=== PATIENT | male | born 1955 | race Caucasian/White ===

== ENCOUNTER 2016-12-09 12:58 | Observation (INO) | payer SELFPAY ==
[~2016-12-09] VITALS: Ht 170.2 cm; Wt 85.0 kg
[2016-12-09] VITALS (7 sets, daily range): BP systolic 127–171; BP diastolic 71–88; PULSE 41–57; RESP 14–18; TEMP 98.1–98.7; O2SAT 96–100
[~2016-12-09 12:58] MED LIST: CIPR-9 PO; CIPR0.3S LEFT EAR; CORT1SOL LEFT EAR; IBUP800T23 PO; LIPI10TA PO; LISI-519 PO; PROZ20CA11 PO
--- NOTE | 2016-12-09 13:13 | PD ---
Physical Exam Date Seen by Provider: Dec 09, 2016 Time Seen by Provider: 13:11 Narrative 61 YOWM C/O INTERMITTENT CHEST TIGHTNESS SINCE YEST. NO N/V/OR DIAPHORESIS VS REVIEWED AWAITING BED PLACEMENT Data Data Last Documented VS Vital Signs Date Time Temp Pulse Resp B/P Pulse Ox O2 Delivery O2 Flow Rate FiO2 12/09/16 12:59 98.7 57 14 135/73 96 Room Air MDM Supervised Visit with STEVO: Hussein Littlejohn Dec 09, 2016 13:13
[2016-12-09] MEDS ORDERED: SODIUM CHLORIDE 0.9% FLUSH 10 ML FLUSH IVF PRN (13:30)
[2016-12-09 13:58] LABS: AUTOMATED NEUTROPHIL # 6.8 TH/MM3 (1.8-7.7); BASOPHIL # 0.1 TH/MM3 (0-0.2); BASOPHIL % 0.6 % (0.0-2.0); EOSINOPHIL # 0.3 TH/MM3 (0-0.4); EOSINOPHIL % 2.6 % (0.0-4.0); HEMATOCRIT 44.6 % (39.0-51.0); HEMO FLAGS DIFF FINAL; LYMPH % 24.5 % (9.0-44.0); LYMPHOCYTE # 2.5 TH/MM3 (1.0-4.8); MEAN CELL VOLUME 91.5 FL (80.0-100.0); MEAN CORPUSCULAR HGB CONC 33.9 % (32.0-36.0); MONO % 4.4 % (0.0-8.0); NEUT % 67.9 % (16.0-70.0); PLATELET COUNT 204 TH/MM3 (150-450); RED BLOOD COUNT 4.88 MIL/MM3 (4.50-5.90); RED CELL DISTRIBUTION WIDTH 13.6 % (11.6-17.2); WHITE BLOOD COUNT 10.1 TH/MM3 (4.0-11.0)
[2016-12-09 14:11] LABS: APTT (PATIENT) 34.5 SEC (24.3-30.1); PROTHROMBIN TIME - PATIENT 35.4 SEC (9.8-11.6)
[2016-12-09 14:15] LABS: ANION GAP 5 MEQ/L (5-15); BICARBONATE 30.1 MEQ/L (21.0-32.0); BLOOD UREA NITROGEN 19 MG/DL (7-18); CHLORIDE 101 MEQ/L (98-107); GLOMERULAR FILTRATION RATE 76 ML/MIN (>89); MAGNESIUM 2.1 MG/DL (1.5-2.5); POTASSIUM 3.7 MEQ/L (3.5-5.1); SODIUM (NA) 136 MEQ/L (136-145)
[2016-12-09 14:20] LABS: CREATINE KINASE 217 U/L (39-308)
[2016-12-09 14:33] LABS: CKMB 3.1 NG/ML (0.5-3.6)
--- NOTE | 2016-12-09 15:31 | RADRPT ---
EXAM DATE/TIME: 12/09/2016 14:29 [facility] COMPARISON: No previous studies available for comparison. INDICATIONS : Chest pain since yesterday. MEDICAL HISTORY : None. SURGICAL HISTORY : None. ENCOUNTER: Initial ACUITY: 2 days PAIN SCORE: 7/10 LOCATION: Bilateral chest FINDINGS: PA and lateral views of the chest demonstrate the lungs to be symmetrically aerated without evidence of mass, infiltrate or effusion. The cardiomediastinal contours are unremarkable. Osseous structure s are intact. CONCLUSION: No acute disease. Joseph Pond MD on December 09, 2016 at 15:29 Board Certified Radiologist. This report was verified electronically.
--- NOTE | 2016-12-09 18:20 | PD ---
HPI Chief Complaint: Pain: Acute or Chronic Time Seen by Provider: 16:51 Travel History International Travel<30 days: No Contact w/Intl Traveler<30days: No Traveled to known affect area: No History of Present Illness HPI 61 year-old woman presents emergent arm with intermittent stabbing bandlike chest pain across his chest starting about 2 days ago. Been intermittent since then. Not clearly exertional. No clear alleviating factors. He's had one episode of chest pain in the past in 2003 were he had a stress test and ultimately a heart catheterization that was reportedly normal. No cardiac workup since then. He drinks alcohol only rarely. Doesn't really take NSAIDs. He's not had any shortness of breath or nausea vomiting with this. He has had a little bit diaphoresis. He has had some recent car trips but has not had any leg swelling or pain or cramps in his legs. Again no shortness of breath. History Past Medical History Narrative Medical Hypertension Hyperlipidemia Tetanus Vaccination: Unknown Influenza Vaccination: No Social History Alcohol Use: Yes (OCCASIONALLY) Tobacco Use: Yes (1 PPD ) Allergies-Medications (Allergen,Severity, Reaction): Coded Allergies: sulfamethoxazole (Unverified Allergy, Intermediate, Rash, 12/09/16) trimethoprim (Unverified Allergy, Intermediate, Rash, 12/09/16) Reported Meds & Prescriptions Reported Meds & Active Scripts Active Reported Lipitor (Atorvastatin Calcium) 10 Mg Tab 10 Mg PO HS Lisinopril 5 Mg Tab 5 Mg PO DAILY Prozac (Fluoxetine HCl) 20 Mg Cap 20 Mg PO DAILY Review of Systems Except as stated in HPI: all other systems reviewed are Neg Physical Exam Narrative GENERAL: Well-appearing 61-year-old man, no acute distress. SKIN: Focused skin assessment warm/dry. HEAD: Atraumatic. Normocephalic. CARDIOVASCULAR: Regular rate and rhythm. No murmur appreciated. RESPIRATORY: No accessory muscle use. Clear to auscultation. Breath sounds equal bilaterally. GASTROINTESTINAL: Abdomen soft, non-tender, nondistended. Hepatic and splenic margins not palpable. MUSCULOSKELETAL: No obvious deformities. No clubbing. No cyanosis. No edema. NEUROLOGICAL: Awake and alert. No obvious cranial nerve deficits. Motor grossly within normal limits. Normal speech. PSYCHIATRIC: Appropriate mood and affect; insight and judgment normal. Data Data Last Documented VS Vital Signs Date Time Temp Pulse Resp B/P Pulse Ox O2 Delivery O2 Flow Rate FiO2 12/09/16 17:57 171/88 12/09/16 17:54 41 12/09/16 17:50 100 Nasal Cannula 2 12/09/16 17:49 16 12/09/16 12:59 98.7 Orders Electrocardiogram (12/09/16 13:20) Basic Metabolic Panel (Bmp) (12/09/16 13:20) Ckmb (Isoenzyme) Profile (12/09/16 13:20) Complete Blood Count With Diff (12/09/16 13:20) Magnesium (Mg) (12/09/16 13:20) Prothrombin Time / Inr (Pt) (12/09/16 13:20) Act Partial Throm Time (Ptt) (12/09/16 13:20) Troponin I (12/09/16 13:20) Ecg Monitoring (12/09/16 13:20) Bilateral Bp Monitoring (12/09/16 13:20) Iv Access Insert/Monitor (12/09/16 13:20) Oximetry (12/09/16 13:20) Oxygen Administration (12/09/16 13:20) Sodium Chloride 0.9% Flush (Ns Flush) (12/09/16 13:30) Chest, Pa & Lat (12/09/16 13:20) CKMB (12/09/16 13:30) CKMB% (12/09/16 13:30) Hepatic Functional Panel (12/09/16 17:38) Prothrombin Time / Inr (Pt) (12/09/16 17:38) Troponin I (12/09/16 18:03) Electrocardiogram (12/09/16 ) Admit Order (Ed Use Only) (12/09/16 ) Activity Bed Rest With Brp (12/09/16 18:55) Vital Signs (Adult) Q4H (12/09/16 18:55) Cardiac Rhythm .As Directed (12/09/16 18:55) Notify Dr: Other .PRN (12/09/16 18:55) Notify Parameters (12/09/16 18:55) Resp Oxygen Nasal Cannula (12/09/16 ) Ckmb (Isoenzyme) Profile (12/09/16 18:55) Ckmb (Isoenzyme) Profile (12/09/16 21:55) Troponin I (12/09/16 18:55) Troponin I (12/09/16 21:55) Electrocardiogram (12/09/16 18:55) Electrocardiogram (12/09/16 21:55) ^ Obtain (12/09/16 18:55) Sodium Chloride 0.9% Flush (Ns Flush) (12/09/16 19:00) Sodium Chloride 0.9% Flush (Ns Flush) (12/09/16 21:00) [employer] / Telemetry GABO.Q8H (12/09/16 18:55) Labs Laboratory Tests Test 12/09/16 12/09/16 12/09/16 12/09/16 13:30 13:33 13:36 18:00 Sodium Level 136 MEQ/L Potassium Level 3.7 MEQ/L Chloride Level 101 MEQ/L Carbon Dioxide Level 30.1 MEQ/L Anion Gap 5 MEQ/L Blood Urea Nitrogen 19 MG/DL Creatinine 1.00 MG/DL Estimat Glomerular Filtration 76 ML/MIN Rate Random Glucose 126 MG/DL Calcium Level 8.8 MG/DL Magnesium Level 2.1 MG/DL Total Creatine Kinase 217 U/L Creatine Kinase MB 3.1 NG/ML Troponin I LESS THAN 0.02 NG/ML White Blood Count 10.1 TH/MM3 Red Blood Count 4.88 MIL/MM3 Hemoglobin 15.1 GM/DL Hematocrit 44.6 % Mean Corpuscular Volume 91.5 FL Mean Corpuscular Hemoglobin 31.0 PG Mean Corpuscular Hemoglobin 33.9 % Concent Red Cell Distribution Width 13.6 % Platelet Count 204 TH/MM3 Mean Platelet Volume 8.6 FL Neutrophils (%) (Auto) 67.9 % Lymphocytes (%) (Auto) 24.5 % Monocytes (%) (Auto) 4.4 % Eosinophils (%) (Auto) 2.6 % Basophils (%) (Auto) 0.6 % Neutrophils # (Auto) 6.8 TH/MM3 Lymphocytes # (Auto) 2.5 TH/MM3 Monocytes # (Auto) 0.4 TH/MM3 Eosinophils # (Auto) 0.3 TH/MM3 Basophils # (Auto) 0.1 TH/MM3 CBC Comment DIFF FINAL Differential Comment Prothrombin Time 35.4 SEC 11.4 SEC Prothromb Time International 3.0 RATIO 1.0 RATIO Ratio Activated Partial 34.5 SEC Thromboplast Time Total Bilirubin 0.7 MG/DL Direct Bilirubin 0.1 MG/DL Indirect Bilirubin 0.6 MG/DL Aspartate Amino Transf 18 U/L (AST/SGOT) Alanine Aminotransferase 23 U/L (ALT/SGPT) Alkaline Phosphatase 70 U/L Total Protein 7.1 GM/DL Albumin 3.7 GM/DL [facility] Medical Decision Making Medical Screen Exam Complete: Yes Emergency Medical Condition: Yes Interpretation(s) My review of EKG: Sinus bradycardia rate of 51, normal axis, septal Q waves, normal intervals, no acute ischemia. Repeat EKG shows sinus bradycardia at a rate of 41, still question of some septal Q waves, no definite evidence of acute ischemia. LABS: CBC is unremarkable. CMP shows mildly elevated BUN. Troponin negative. INR 3.0, repeat normal. Suspect this initial value is spurious. Differential Diagnosis ACS, gastritis, reflux, PE, other Narrative Course Medical decision making Is a 61 year-old woman who presents emergent from epigastric chest pain intermittent since the past 2 days. He does little bit of dietary indiscretion my suspicion is is likely GI in origin. Difficult to exclude ACS. Multiple risk factors. We'll plan on admission to chest pain Center for observation. He reports some alcohol use but not frequent. His INR is elevated. We'll recheck the INR and abnormal liver enzymes. I don't think he has a PE. Diagnosis Primary Impression: Chest pain Jose Juan Fisher MD Dec 09, 2016 18:20
[2016-12-09 18:40] LABS: INDIRECT BILIRUBIN 0.6 MG/DL (0.0-0.8); PROTHROMBIN TIME - PATIENT 11.4 SEC (9.8-11.6); TOTAL BILIRUBIN ADULT 0.7 MG/DL (0.2-1.0)
[2016-12-09] MEDS ORDERED: SODIUM CHLORIDE 0.9% FLUSH 10 ML FLUSH IV FLUSH PRN (19:00)
[2016-12-09 22:02] LABS: CREATINE KINASE 207 U/L (39-308)
[2016-12-09 22:15] LABS: CKMB 3.2 NG/ML (0.5-3.6)
[2016-12-09] MEDS: SODIUM CHLORIDE 0.9% FLUSH 10 ML FLUSH IV FLUSH SCH (22:20)
[2016-12-10] VITALS (7 sets, daily range): BP systolic 90–135; BP diastolic 52–71; PULSE 44–56; RESP 18; TEMP 97.7–98.5; O2SAT 96–99
--- NOTE | 2016-12-10 00:30 | EKG ---
Date Performed: 12/09/2016 Time Performed: 18:14:42 PTAGE: 61 years EKG: SINUS BRADYCARDIA SEPTAL MYOCARDIAL INFARCTION ABNORMAL ECG PREVIOUS TRACING : 12/09/2016 13.26 Compared to prior tracing no significant change DOCTOR: Wesley Khan Interpretating Date/Time 12/10/2016 00:28:27
[2016-12-10] MEDS: SODIUM CHLORIDE 0.9% FLUSH 10 ML FLUSH IV FLUSH SCH (08:31)
[2016-12-10] MEDS ORDERED: LISINOPRIL 5 MG TAB PO SCH (11:00)
--- NOTE | 2016-12-10 11:00 | HHI.HP ---
HPI Primary Care Physician No Primary Care Physician Chief Complaint Chest pain History of Present Illness This is a 61-year-old male that presents to ED via private vehicle complaining of a discomfort and to waking 2 days ago. He describes as a bandlike sensation/ tightness. The last 3-4 hours but since it has recurred lasting a few seconds at a time. Denies shortness of breath, nausea, or diaphoresis. Found nothing to worsen or improve it. Found nothing to bring on the discomfort. Denies history of CAD. Denies recent illnesses. Review of Systems General: Patient denies fevers, chills recent, and recent travel HEENT: Patient denies headache, sore throat, difficulty swallowing. Cardiovascular: Has the chest discomfort as mentioned above. Denies sensation of heart beating rapidly or irregularly. No syncope. Denies diaphoresis. Respiratory: Denies shortness of breath or inspirational chest discomfort. Denies coughing wheezing or hemoptysis. GI: Patient denies nausea, vomiting, diarrhea, abdominal pain, bloody stools. Musculoskeletal: Patient denies joint pain or edema. Denies calf pain or edema. Neurovascular: Patient denies numbness, tingling, weakness in extremities. Denies headache. Endocrine: Denies polyuria and polydipsia. Hematologic: Denies easy bruising. Skin: Denies rash or itching. Past Family Social History Allergies: Coded Allergies: sulfamethoxazole (Unverified Allergy, Intermediate, Rash, 12/09/16) trimethoprim (Unverified Allergy, Intermediate, Rash, 12/09/16) Past Medical History Hypertension, hyperlipidemia, diverticulitis, past history tobacco abuse but quit smoking 2 years ago. Denies diabetes and CAD. Past Surgical History Noncontributory. Reported Medications Reported Meds & Active Scripts Active Reported Lipitor (Atorvastatin Calcium) 10 Mg Tab 10 Mg PO HS Lisinopril 5 Mg Tab 5 Mg PO DAILY Prozac (Fluoxetine HCl) 20 Mg Cap 20 Mg PO DAILY Active Ordered Medications Current Medications Medications (Trade) Dose Ordered Sig/Rodriguez Route Start Time Stop Time Status Last Admin (NS Flush) 2 ml UNSCH PRN IVF 12/09/16 13:30 (NS Flush) 2 ml UNSCH PRN IV FLUSH 12/09/16 19:00 (NS Flush) 2 ml BID IV FLUSH 12/09/16 21:00 12/09/16 22:20 Family History Denies family history of CAD. Social History Patient quit smoking cigarettes 2 years ago. Prior that he smoked 1-1-1/2 packs of cigarettes daily for greater than 30 years. Has occasional alcohol. Denies illicit drugs. Physical Exam Vital Signs Vital Signs Date Time Temp Pulse Resp B/P Pulse Ox O2 Delivery O2 Flow Rate FiO2 12/10/16 04:09 52 12/10/16 03:25 45 18 135/70 99 12/10/16 00:46 44 12/10/16 00:23 98.2 46 18 128/71 96 12/09/16 21:23 98.1 42 18 156/74 96 12/09/16 19:53 98 Nasal Cannula 2.50 12/09/16 19:25 47 18 135/79 98 Room Air 12/09/16 17:57 171/88 12/09/16 17:54 41 127/71 12/09/16 17:54 41 127/71 12/09/16 17:50 100 Nasal Cannula 2 12/09/16 17:49 41 16 171/82 100 Nasal Cannula 2 12/09/16 17:49 41 18 171/82 100 Nasal Cannula 2 12/09/16 12:59 98.7 57 14 135/73 96 Room Air Physical Exam GENERAL: This is a well-nourished, well-developed patient, in no apparent distress. Patient speaks in clear complete sentences. Patient is pleasant. HEENT: Head is atraumatic and normocephalic. Neck is supple without lymphadenopathy and trachea is midline. No JVD or carotid bruits. CARDIOVASCULAR: Regular rate and rhythm without murmurs, gallops, or rubs. RESPIRATORY: Clear to auscultation. Breath sounds equal bilaterally. No wheezes , rales, or rhonchi. Chest wall is nontender. No use of accessory muscles. GASTROINTESTINAL: Abdomen is nontender, nondistended. Abdomen soft. No obvious pulsatile mass or bruit. No CVA tenderness. Strong femoral pulses bilaterally. Normal bowel sounds in all quadrants. MUSCULOSKELETAL: Patient is moving upper and lower extremities freely. No calf tenderness or edema, no Homans sign. Strong pulses in upper and lower extremities. NEUROLOGICAL: Patient is alert and oriented. Cranial nerves 2-12 are grossly intact. No focal deficits and speech is clear. SKIN: No rash and turgor is normal. Laboratory Laboratory Tests Test 12/09/16 12/09/16 12/09/16 12/09/16 13:30 13:33 13:36 18:00 Sodium Level 136 Potassium Level 3.7 Chloride Level 101 Carbon Dioxide Level 30.1 Anion Gap 5 Blood Urea Nitrogen 19 Creatinine 1.00 Estimat Glomerular Filtration 76 Rate Random Glucose 126 Calcium Level 8.8 Magnesium Level 2.1 Total Creatine Kinase 217 Creatine Kinase MB 3.1 Troponin I LESS THAN 0.02 White Blood Count 10.1 Red Blood Count 4.88 Hemoglobin 15.1 Hematocrit 44.6 Mean Corpuscular Volume 91.5 Mean Corpuscular Hemoglobin 31.0 Mean Corpuscular Hemoglobin 33.9 Concent Red Cell Distribution Width 13.6 Platelet Count 204 Mean Platelet Volume 8.6 Neutrophils (%) (Auto) 67.9 Lymphocytes (%) (Auto) 24.5 Monocytes (%) (Auto) 4.4 Eosinophils (%) (Auto) 2.6 Basophils (%) (Auto) 0.6 Neutrophils # (Auto) 6.8 Lymphocytes # (Auto) 2.5 Monocytes # (Auto) 0.4 Eosinophils # (Auto) 0.3 Basophils # (Auto) 0.1 CBC Comment DIFF FINAL Differential Comment Prothrombin Time 35.4 11.4 Prothromb Time International 3.0 1.0 Ratio Activated Partial 34.5 Thromboplast Time Total Bilirubin 0.7 Direct Bilirubin 0.1 Indirect Bilirubin 0.6 Aspartate Amino Transf 18 (AST/SGOT) Alanine Aminotransferase 23 (ALT/SGPT) Alkaline Phosphatase 70 Total Protein 7.1 Albumin 3.7 Test 12/09/16 21:18 Total Creatine Kinase 207 Creatine Kinase MB 3.2 Troponin I LESS THAN 0.02 Result Diagram: 12/09/16 1333 12/09/16 1330 Imaging Last 24 hours Impressions Chest X-Ray 12/09/16 1320 Signed Impressions: Service Date/Time: Friday, December 09, 2016 14:29 - CONCLUSION: No acute disease. Joseph Pond MD Course EKGs have bradycardia without significant ST segment depressions or elevations. Assessment and Plan Assessment and Plan * Chest pain: Patient has had serial cardiac enzymes and EKGs for ruling out purposes. He was seen by Dr. Frederic Cadet of cardiology in the chest pain center. Davonte protocol ETT was obtained and had some nonspecific inferior ST T changes. Will get a nuclear ETT and will be discharged a stress test is nonischemic. * Hypertension: Continue current medication. * Hyperlipidemia: Continue current medication. Patient is stable at this time. He is agreeable to this plan. Magen Thapa Dec 10, 2016 10:59
--- NOTE | 2016-12-10 13:53 | RADRPT ---
EXAM DATE/TIME: 12/10/2016 11:10 [facility] COMPARISON: No previous studies available for comparison. INDICATIONS : Chest pain. Angina DOSE: 27.2 mCi Tc99m Myoview at stress 8.7 mCi Tc99m Myoview at rest REST HEART RATE: 59 BPM TARGET HEART RATE: 137 BPM MAX HEART RATE: 153 BPM REST BLOOD PRESSURE: 128/80 BPM MAX BLOOD PRESSURE: 128/80 mmHg EJECTION FRACTION: 43% MEDICAL HISTORY : Hypertension. Hyperlipidemia SURGICAL HISTORY : Appendectomy. ENCOUNTER: Initial ACUITY: 2 days PAIN SCALE: 2/10 LOCATION: chest TECHNIQUE: The patient underwent upright treadmill exercise in the chest pain center. Continuous ECG tracing wa s monitored during stress. Gated SPECT imaging was performed after stress, and conventional SPECT im aging was performed at rest. The examination was performed on a SPECT/CT scanner, both attenuation-c orrected and non-corrected datasets were reviewed. FINDINGS: DISTRIBUTION: The maximum perfused segment at stress is in the anterolateral wall. PERFUSION STUDY: The pattern of perfusion at stress is within normal limits. GATED STUDY: There is a mild global hypokinesis with ejection fraction estimated at 43%. CONCLUSION: 1. No reversible perfusion defect to suggest stress-induced myocardial ischemia identified. 2. The ejection fraction is somewhat low at 43%. RISK CATEGORY: Intermediate (1-3% Annual Mortality Rate) Yovanny Reid MD on December 10, 2016 at 13:51 Board Certified Radiologist. This report was verified electronically.
--- NOTE | 2016-12-10 14:11 | HHI.DCPOC ---
Discharge Care Plan Diagnosis: (1) Chest pain (2) Hypertension (3) Hyperlipidemia Goals to Promote Your Health * To prevent worsening of your condition and complications * To maintain your health at the optimal level Directions to Meet Your Goals Take your medications as prescribed Follow your dietary instruction Follow activity as directed Keep your appointments as scheduled Take your immunizations and boosters as scheduled If your symptoms worsen call your PCP, if no PCP go to Urgent Care Center or Emergency Room Smoking is Dangerous to Your Health. Avoid second hand smoke Call the 24-hour hour crisis hotline for domestic abuse at Magen Thapa Dec 10, 2016 14:11
--- NOTE | 2016-12-10 15:57 | EKG ---
Date Performed: 12/09/2016 Time Performed: 23:43:02 PTAGE: 61 years EKG: SINUS BRADYCARDIA BORDERLINE ECG PREVIOUS TRACING : 12/09/2016 18.14 Since previous tracing, no significant change noted DOCTOR: Frederic Cadet Interpretating Date/Time 12/10/2016 15:54:43
--- NOTE | 2016-12-10 15:58 | EKG ---
Date Performed: 12/09/2016 Time Performed: 13:26:14 PTAGE: 61 years EKG: SINUS BRADYCARDIA SEPTAL MYOCARDIAL INFARCTION ABNORMAL ECG NO PREVIOUS TRACING DOCTOR: Frederic Cadet Interpretating Date/Time 12/10/2016 15:55:04
--- NOTE | 2016-12-10 15:59 | TR ---
Date Performed: 12/10/2016 Time Performed: 12:00:53 DOCTOR: Frederic Cadet DRUG LIST: CLINICAL HISTORY: CHEST PAIN REASON FOR TEST: REASON FOR ENDING: OBSERVATION: CONCLUSION: Davonte protocol performed. No chest discomfort. Test stopped when target heart rate r eached secondary to shortness of breath and leg fatigue.Maximum TZ=523 % Target HR Achieved=96.0% Max imum AX=024/80 Total Exercise Time=7:02 COMMENTS: ST depression noted at peak exercise. This may represent ischemia vs. false positive. no chest pain noted.
--- NOTE | 2016-12-10 16:24 | TR ---
Date Performed: 12/10/2016 Time Performed: 08:57:57 DOCTOR: Frederic Cadet DRUG LIST: CLINICAL HISTORY: CHEST PAIN REASON FOR TEST: REASON FOR ENDING: OBSERVATION: CONCLUSION: Davonte protocol performed. No chest discomfort. Test stopped when maximum heart rate reached secondary to shortness of breath and leg fatigue. Maximum HE=947 Target HR Achieved=99.0% Max imum NX=286/74 Total Exercise Time=7:10. COMMENTS: ST segment [id number] again noted. Nuclear imaging pending
[2016-12-10] MEDS ORDERED: ATORVASTATIN 10 MG TAB PO SCH (21:00)
[2016-12-11] MEDS ORDERED: FLUoxetine HCL 20 MG CAP PO SCH (09:00)
== END 2016-12-10 16:45 | disposition home or self-care (01) ==
LOC: NEPC 12:58 → NEDA 18:57 → NEPFCDU 20:45
PROVIDERS: ADMIT Internal Medicine Interventional Cardiology; ATTEND Internal Medicine Interventional Cardiology
DX: R07.89 Other chest pain (principal); I10 Essential (primary) hypertension; E78.5 Hyperlipidemia, unspecified; R94.31 Abnormal electrocardiogram [ECG] [EKG]; Z72.0 Tobacco use
CPT/HCPCS: 71020; 78452; 80048; 80076; 82550; 82552; 83735; 84484; 85025; 85610; 85730; 93005; 93017; 99285; A9502; G0378